=== PATIENT | male | born 1945 | race Caucasian/White ===

== ENCOUNTER → 2024-02-25 | Outpatient (CLI) | payer MEDICARE, BC, SELFPAY ==
[2024-02-25 12:16] LABS: Basophils % (Auto) 1 % (0-2.5); Eosinophils # (Auto) 0.2 Thou/mm3 (0.0-0.5); Eosinophils % (Auto) 3 % (0-10); Hematocrit 38.4 % (41.0-53.0); Hemoglobin 12.9 g/dL (13.5-16.0); Immature Granulocytes % (Auto) 0 % (0-0); Immature Granulocytes Auto 0.03 Thou/mm3 (0.00-0.00); Lymphocytes # (Auto) 2.1 Thou/mm3 (1.0-4.8); Lymphocytes % (Auto) 30 % (10-50); Mean Corpuscular HGB Conc 33.6 g/dl (31.0-37.0); Mean Corpuscular Hemoglobin 29.9 pg (25.0-35.0); Mean Corpuscular Volume 89 fL (80-100); Monocytes # (Auto) 0.8 Thou/mm3 (0.0-0.8); Monocytes % (Auto) 11 % (0-12); Neutrophils # (Auto) 3.9 Thou/mm3 (1.8-7.7); Neutrophils % (Auto) 55 % (37-80); Nucleated Red Blood Cell % 0 /100 WBC (0); Platelet Count 214 Thou/mm3 (140-440); RDW Standard Deviation 42.5 fL (35.1-43.9); Red Blood Count 4.32 Miln/mm3 (4.50-5.90); White Blood Count 7.1 Thou/mm3 (3.8-10.6)
[2024-02-25 12:25] LABS: Prostate Specific Antigen 0.27 ng/mL (0-4.00)
[2024-02-25 12:26] LABS: Alanine Aminotransferase 12 U/L (10-49); Albumin, Serum 4.2 gm/dL (3.4-4.8); Albumin/Globulin Ratio 1.8 (1.2-2.2); Alkaline Phosphatase 53 U/L (46-116); Anion Gap 3 (7-16); Aspartate Amino Transferase 18 U/L (0-34); BUN/Creatinine Ratio 16 Ratio (12-20); Bilirubin,Total 0.5 mg/dL (0.3-1.2); Blood Urea Nitrogen 16 mg/dL (9-23); Calcium 9.8 mg/dL (8.3-10.6); Calcium (Corrected) 9.8 mg/dL (8.5-10.1); Carbon Dioxide 26.2 mMol/L (20.0-31.0); Chloride 109 mMol/L (98-107); Globulin 2.3 gm/dL (2.3-3.5); Glucose 105 mg/dL (74-106); Osmolality,Calculated 276 (275-295); Sodium 138 mMol/L (136-145); Total Protein 6.5 gm/dL (5.7-8.2); eGFR > 60 See Note
== END | disposition home or self-care (01) ==
LOC: SCTO 10:54
PROVIDERS: PCP Family Medicine; Referring Provider Internal Medicine Hematology & Oncology; Visit Provider Internal Medicine Hematology & Oncology
DX: C61 Malignant neoplasm of prostate (principal); C79.51 Secondary malignant neoplasm of bone
CPT/HCPCS: 36415; 80053; 84153; 85025

== ENCOUNTER 2024-03-28 07:52 | Outpatient (RCR) | payer MEDICARE, BC, SELFPAY ==
--- NOTE | 2024-03-09 05:44 | CTCFLWUP_ITS ---
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 On Lupron. Xtandi discontinued due to arrhythmia in the first week of May 2021. Currently on Abiraterone 250 mg p.o. daily along with prednisone (11/04/2021??). REASON FOR TODAY?S VISIT: This is office follow-up visit. Mr. Gonzales is here at [facility]. He is clinically doing very well. Denies any new complaints. Denies any coug h, chest pain, abdominal pain or leg cramps. Ambulating well without any help. Has good appetite an d good energy levels. Denies any weight loss. Walks about a mile every day. Patient do not take calcium and vitamin D. HISTORY OF PRESENT ILLNESS: Adi Gonzales is a 78-year-old ENG speaking male with history of gout has the following oncology history. 01/20/2019: Patient had a CT scan of the abdomen and pelvis due to persistent pain of few weeks durat ion. CT scan showed extensive bulky para-aortic, paracaval adenopathy. Prominent left common as wel l as external iliac lymphadenopathy was also noted. Transverse prostate dimension was 4.6 cm in size . 01/21/2019: PSA 1840. 02/03/2019: Patient had prostate biopsy which showed [place] score 7 prostatic adenocarcinoma. 01/31/2019: Bone scan?no evidence of metastatic disease to the bone. 03/09/2019: MRI of the lumbar spine? 5 mm focal enhancement inferior L2 vertebral body, consider early osseous metastatic disease Prominent retroperitoneal adenopathy, please see the CT abdomen report January 21, 2019 02/08/2019: PSA 2734.20. 02/24/2019: Patient received Lupron 22.5 mg IM. He also started taking Casodex tablets. 03/14/2019: PSA 1414.5. 03/16/2019: Casodex discontinued. Patient was started on Xtandi. 03/20/2019: PET CT scan?IMPRESSION: Extensive para-aortic, paracaval, left common iliac, left externa l iliac weakly hypermetabolic lymphadenopathy Prostate transverse dimension 4.5 cm, irregular contour Negative for osseous metastatic disease 04/21/2019: CT-guided biopsy of right and left periaortic lymph nodes. Right para-aortic lymph node s howed metastatic prostatic adenocarcinoma. 05/17/2019: PSA 48.81. 08/05/2019: PSA 14.38. 09/09/2019: PET CT scan? 11/30/2019: PSA 6.74. 02/27/2020: PSA 5.16. Alkaline phosphatase 87. 06/05/2020: PSA 2.63. 06/11/2020: CT scan of the chest abdomen and pelvis with IV contrast? 08/22/2020: PSA 1.65. 02/25/2021: PSA 0.80. 05/24/2021: PSA 0.45. May 2021: Xtandi discontinued due to arrhythmias. 09/05/2021: Patient had Lupron 22.5 mg IM. 08/23/2021: PSA 0.64. 11/04/2021: Patient is started on Zytiga to 50 mg p.o. daily along with prednisone 5 mg p.o. daily. 12/26/2021: PSA 0.85. 01/28/2022: Bone scan?negative for bone mets 02/20/2022: PSA 0.60. 02/24/2022: CT scan of the chest abdomen and pelvis with IV contrast 12/03/2022: PSA 0.45 03/03/2023: PSA 0.51. 06/02/2023: PSA 0.46. 08/28/2023: PSA 0.41. PAST MEDICAL HISTORY: prostate?ca Gout PAST SURGICAL HISTORY: hernia MEDICATIONS: 1. abiraterone - 250 mg 1 tab Daily 2. aspirin - 81 mg 1 tab Daily 3. benazepril - 10 mg Daily 4. Colace - 250 mg Twice a Day 5. fentanyl - 25 mcg/hr 1 Patch q3 days 6. Lipitor - 10 mg 1 tab Daily 7. prednisone - 5 mg 1 tab Daily?Palabra Meds? Medications Last Reconciled by Cassandra Cotto MA on 10/15/2023 ALLERGIES: No Known Allergies REVIEW OF SYSTEMS:?Clone ROS? Neurological: No headache, seizures or blurring of vision. Gastrointestinal: No nausea, vomiting, diarrhea or constipation. Cardiovascular: No palpitations or angina pains. Respiratory: No cough, chest pain or shortness of breath. PHYSICAL EXAMINATION:?ClonePE? VITAL SIGNS: Alert oriented x 4 neck is supple. No adenopathy palpable in the neck, axilla or in the inguinal region. Chest clear to auscultation. No wheezes or rales audible. CVS rhythm regular. No murmurs or gallops. Abdomen is soft. No hepatosplenomegaly palpable. Extremities no clubbing or cyanosis. ASSESSMENT: 1. Castration resistant metastatic prostate ca, currently patient is on Lupron. PSA was increasing when patient was on Lupron and was added amputated on an prednisone in November 2021 and since then patient has been doing well the patient is clinically doing well without any complaints. Patient's PSA has been less than 1 Mr. Gonzales is currently on Abiraterone 250 mg p.o. daily along with prednisone 5 mg p.o. daily since 11/04/2021. And Lupron injections were continued CT-guided biopsy of the periaortic lymph node showed metastatic adenocarcinoma consistent with prosta te primary. Patient's bone scan is negative except for small activity in manubrium which she has been present bef ore. 2. History of gouy- patient to follow-up with PCP t PLAN: Continue Lupron and Zytiga 250 mg p.o. daily along with prednisone 5 mg p.o. daily Continue Lupron Get bone density. Will start on Reclast if found to be osteoporotic. Counseled to take calcium and vitamin D every day RTC in [address] Elaine Electronically Signed by: {Object.Sanct_ID*[email or web address]@M}, {Object.Sanct_ID*PnP.Suffix@U} D: {Object.Sanct_Date} T: {Object.Sanct_Time} CC: PCP: Carmine Santana Referring: Van Wolfe This document was completed utilizing speech recognition software. Grammatical errors, random word in sertions, pronoun errors, and incomplete sentences are an occasional consequence of this system due t o software limitations, ambient noise, and hardware issues. Any formal questions or concerns about th e content, text or information contained within the body of this dictation should be directly address ed to the provider for clarification.
== END 2024-04-05 23:59 | disposition home or self-care (01) ==
LOC: SCTC 07:52
PROVIDERS: PCP Family Medicine; Referring Provider Family Medicine; Visit Provider Radiology Therapeutic Radiology
DX: Z51.11 Encounter for antineoplastic chemotherapy (principal); C61 Malignant neoplasm of prostate; C77.2 Secondary and unspecified malignant neoplasm of intra-abdominal lymph nodes; G89.3 Neoplasm related pain (acute) (chronic)
CPT/HCPCS: 96402; 99212; 99213; J9217; G0463

== ENCOUNTER → 2024-04-28 | Outpatient (CLI) | payer MEDICARE, BC, SELFPAY ==
--- NOTE | 2024-04-28 13:00 | XR_ITS ---
Examination: Bone densitometry Date and time of exam:April 28, 2024 1301 hours INDICATIONS: 79-year-old male with diagnosis age related osteoporosis, prednisone administration 4 months Technique: Lumbar spine and hip total bone mineralization values of an calculated. Peak reference and age match control results have been displayed. Findings: Lumbar spine total bone mineralization is1.160 gm/cm2. This is 0.6 standard deviations above peak reference. This is 1.8 standard deviations above age-matched controls. Hip total bone mineralization is 0.864 gm/cm2 This is 1.1 standard deviations below peak reference. This is 0.0 standard deviations at age-matched controls Impression: There is normal mineralization based on lumbar spine measurements. There is osteopenia based on hip measurements
== END | disposition home or self-care (01) ==
PROVIDERS: PCP Family Medicine; Referring Provider Internal Medicine Hematology & Oncology; Visit Provider Internal Medicine Hematology & Oncology
DX: M85.88 Other specified disorders of bone density and structure, other site (principal); C61 Malignant neoplasm of prostate; C79.51 Secondary malignant neoplasm of bone
CPT/HCPCS: 77080

== ENCOUNTER → 2024-05-30 | Outpatient (CLI) | payer MEDICARE, BC, SELFPAY ==
[2024-05-30 12:35] LABS: Prostate Specific Antigen 0.26 ng/mL (0-4.00)
== END | disposition home or self-care (01) ==
LOC: SCTO 10:46
PROVIDERS: PCP Family Medicine; Referring Provider Internal Medicine Hematology & Oncology; Visit Provider Internal Medicine Hematology & Oncology
DX: C61 Malignant neoplasm of prostate (principal); C79.51 Secondary malignant neoplasm of bone
CPT/HCPCS: 36415; 84153

== ENCOUNTER 2024-06-28 07:48 | Outpatient (RCR) | payer MEDICARE, BC, SELFPAY | END 2024-07-04 23:59 | disposition home or self-care (01) | LOC: SCTC 07:48 | PROVIDERS: PCP Family Medicine; Referring Provider Family Medicine; Visit Provider Radiology Therapeutic Radiology | DX: Z51.11 Encounter for antineoplastic chemotherapy (principal); C61 Malignant neoplasm of prostate; Z79.818 Long term (current) use of other agents affecting estrogen receptors and estrogen levels | CPT/HCPCS: 96402; 99213; J9217; G0463 ==

== ENCOUNTER 2024-07-12 10:44 | Outpatient (RCR) | payer MEDICARE, BC, SELFPAY ==
--- NOTE | 2024-07-12 14:07 | CTCFLWUP_ITS ---
Patient: ADI GONZALES : 1945 Page 4 of 6 FOLLOW UP NOTE DATE OF SERVICE: 07/12/2024 NAME: ADI GONZALES ACCOUNT: [id number] : 1945 AGE: 79 INTERVAL HISTORY: Patient doing well. Taking his meds as prescribed .. ONCOLOGY HISTORY: DIAGNOSIS: castration resistant metastatic prostate cancer macie biopsy proven in lymph nodes (02/03/2019). On Lupron. Xtandi discontinued due to arrhythmia in the first week of May 2021. Currently on Abiraterone 250 mg p.o. daily along with prednisone (11/04/2021??). REASON FOR TODAY?S VISIT: This is office follow-up visit. Mr. Gonzales is here at [facility]. He is clinically doing very well. Denies any new complaints. Denies any cough, chest pain, abdominal pain or leg cramps. Ambulating well without any help. Has good appetite and good energy levels. Denies any weight loss. Walks about a mile every day. Patient do not take calcium and vitamin D. 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 01/20/2019: Patient had a CT scan of the abdomen and pelvis due to persistent pain of few weeks duration. CT scan showed extensive bulky para-aortic, paracaval adenopathy. Prominent left common as well as external iliac lymphadenopathy was also noted. Transverse prostate dimension was 4.6 cm in size. 01/21/2019: PSA 1840. 02/03/2019: Patient had prostate biopsy which showed [place] score 7 prostatic adenocarcinoma. 01/31/2019: Bone scan?no evidence of metastatic disease to the bone. 03/09/2019: MRI of the lumbar spine? 5 mm focal enhancement inferior L2 vertebral body, consider early osseous metastatic disease Prominent retroperitoneal adenopathy, please see the CT abdomen report January 21, 2019 02/08/2019: PSA 2734.20. 02/24/2019: Patient received Lupron 22.5 mg IM. He also started taking Casodex tablets. 03/14/2019: PSA 1414.5. 03/16/2019: Casodex discontinued. Patient was started on Xtandi. 03/20/2019: PET CT scan?IMPRESSION: Extensive para-aortic, paracaval, left common iliac, left external iliac weakly hypermetabolic lymphadenopathy Prostate transverse dimension 4.5 cm, irregular contour Negative for osseous metastatic disease 04/21/2019: CT-guided biopsy of right and left periaortic lymph nodes. Right para-aortic lymph node showed metastatic prostatic adenocarcinoma. 05/17/2019: PSA 48.81. 08/05/2019: PSA 14.38. 09/09/2019: PET CT scan? 11/30/2019: PSA 6.74. 02/27/2020: PSA 5.16. Alkaline phosphatase 87. 06/05/2020: PSA 2.63. 06/11/2020: CT scan of the chest abdomen and pelvis with IV contrast? 08/22/2020: PSA 1.65. 02/25/2021: PSA 0.80. 05/24/2021: PSA 0.45. May 2021: Xtandi discontinued due to arrhythmias. 09/05/2021: Patient had Lupron 22.5 mg IM. 08/23/2021: PSA 0.64. 11/04/2021: Patient is started on Zytiga to 50 mg p.o. daily along with prednisone 5 mg p.o. daily. 12/26/2021: PSA 0.85. 01/28/2022: Bone scan?negative for bone mets 02/20/2022: PSA 0.60. 02/24/2022: CT scan of the chest abdomen and pelvis with IV contrast 12/03/2022: PSA 0.45 03/03/2023: PSA 0.51. 06/02/2023: PSA 0.46. 08/28/2023: PSA 0.41. OTHER MEDICAL HISTORY/CONDITIONS: FAMILY HISTORY: SOCIAL HISTORY: MEDICATIONS: 1. abiraterone - 250 mg 1 tab Daily 2. aspirin - 81 mg 1 tab Daily 3. benazepril - 10 mg Daily 4. Brilinta - 90 mg 1 tab Twice a Day 5. Colace - 250 mg Twice a Day 6. fentanyl - 25 mcg/hr 1 Patch q3 days 7. Lipitor - 10 mg 1 tab Daily 8. pantoprazole - 40 mg 1 Daily 9. prednisone - 5 mg 1 tab Daily 10. Vitamin C - 1,000 mg 1 tab Daily Medications Last Reconciled by Jayna Cervantes MD on 07/12/2024 ALLERGIES: No Known Allergies REVIEW OF SYSTEMS: A complete 14-point review of systems was performed and is negative except as noted in interval history. PHYSICAL EXAMINATION: VITAL SIGNS: Temperature?98.4, B/P?119/72, Oxygen?Saturation?97% Weight?187?lbs (Change?since?06/28/24:?-3?lbs) PAIN: 0 - No pain ECOG Performance Status: 0 - Asymptomatic and fully active Alert oriented x 4 neck is supple. No adenopathy palpable in the neck, axilla or in the inguinal region. Breathes at room air No swelling anywhere Moves all extremities well in range No rash LABORATORY DATA: I have personally reviewed and interpreted each of the patient?s relevant lab tests, abnormal findings are below: Date 11/30/23 02/25/24 ??WHITE?BLOOD?COUNT?(Thou/mm3) 7.6 7.1 ??RED?BLOOD?COUNT?(Miln/mm3) 4.58 4.32?L ??HEMOGLOBIN?(gm/dl) 13.8 12.9?L ??HEMATOCRIT?(%) 40.9?L 38.4?L ??PLATELET?COUNT?(Thou/mm3) 244 214 ??NEUTROPHILS?%,?AUTO?(%) 68 55 ??LYMPH?%,?AUTO?(%) 24 30 ??NEUTROPHILS,?AUTO?(Thou/mm3) 5.1 3.9 ??GLUCOSE,RANDOM?(mg/dL) 111?H 105 ??BLOOD?UREA?NITROGEN?(mg/dL) 15 16 ??CREATININE?(mg/dL) 0.90 1.00 ??SODIUM?(mmol/L) 138 138 ??POTASSIUM?(mmol/L) 4.8 4.0 ??CHLORIDE?(mmol/L) 108?H 109?H ??CrCl?(CandG)?(ml/min) 83.24 71.82 ??AST/SGOT?(Unit/L) 17 18 ??ALT/SGPT?(Unit/L) 8?L 12 ??ALKALINE?PHOSPHATASE?(Unit/L) 60 53 ??BILIRUBIN,?TOTAL?(mg/dL) 0.5 0.5 ??PROTEIN?TOTAL?(gm/dl) 6.7 6.5 ??ALBUMIN,?SERUM?(gm/dl) 4.2 4.2 ??GLOBULIN?(gm/dl) 2.5 2.3 ??ALBUMIN/GLOBULIN?RATIO 1.7 1.8 ??CALCIUM,?SERUM?(mg/dL) 10.4 9.8 ??CALCIUM?SERUM?(CORRECTED)?(mg/dL) 10.4?H 9.8 ASSESSMENT/PLAN: 1. Castration resistant metastatic prostate ca, currently patient is on Lupron. PSA was increasing when patient was on Lupron and was added amputated on an prednisone in November 2021 and since then patient has been doing well the patient is clinically doing well without any complaints. Patient's PSA has been less than 1 Mr. Gonzales is currently on Abiraterone 250 mg p.o. daily along with prednisone 5 mg p.o. daily since 11/04/2021. And Lupron injections were continued CT-guided biopsy of the periaortic lymph node showed metastatic adenocarcinoma consistent with prostate primary. Patient's bone scan is negative except for small activity in manubrium which she has been present before. 2. History of gouy- patient to follow-up with PCP t Continue Lupron and Zytiga 250 mg p.o. daily along with prednisone 5 mg p.o. daily Continue Lupron Get bone density. Will start on Reclast if found to be osteoporotic. Counseled to take calcium and vitamin D every day RTC in 4 months. Will get psma based scan and if negative will give drug holiday Signed by Dr Elaine ORDERS: Order # Description [id number] Comprehensive Metabolic Panel - 12 + CBC with Auto Diff + PSA [id number] Follow Up 6 Month [id number] PET/CT of Skull to mid-thigh for Restaging [id number] Comprehensive Metabolic Panel - 12 + CBC with Auto Diff + PSA RETURN TO CLINIC: 4 months after scan on dec 2024 BILLING AND COMPLIANCE: I reviewed external records from providers outside my specialty as summarized above. I spent a total of 50 minutes on this patient?s care on the day of their visit excluding time spent related to any billed procedures. This time includes time spent with the patient as well as time spent documenting in the medical record, reviewing patients records and tests, obtaining history, placing orders, communicating with other healthcare professionals, counseling the patient, family or caregiver, and/or care coordination for the diagnoses above. Electronically Signed by: Alvarado Elaine MD T: 2:04 PM CC: PCP: Ronal Wolfe Referring: Ronal Wolfe This document was completed utilizing speech recognition software. Grammatical errors, random word insertions, pronoun errors, and incomplete sentences are an occasional consequence of this system due to software limitations, ambient noise, and hardware issues. Any formal questions or concerns about the content, text or information contained within the body of this dictation should be directly addressed to the provider for clarification.
== END 2024-08-03 23:59 | disposition home or self-care (01) ==
LOC: SCTC 10:44
PROVIDERS: PCP Family Medicine; Referring Provider Family Medicine; Visit Provider Internal Medicine Hematology & Oncology
DX: C61 Malignant neoplasm of prostate (principal); Z19.2 Hormone resistant malignancy status; C79.89 Secondary malignant neoplasm of other specified sites; Z79.818 Long term (current) use of other agents affecting estrogen receptors and estrogen levels
CPT/HCPCS: Q3014

== ENCOUNTER → 2024-08-30 | Outpatient (CLI) | payer MEDICARE, BC, SELFPAY ==
[2024-08-30 11:49] LABS: Basophils % (Auto) 0 % (0-2.5); Eosinophils # (Auto) 0.1 Thou/mm3 (0.0-0.5); Eosinophils % (Auto) 1 % (0-10); Hematocrit 39.7 % (41.0-53.0); Hemoglobin 13.2 g/dL (13.5-16.0); Immature Granulocytes % (Auto) 1 % (0-0); Immature Granulocytes Auto 0.05 Thou/mm3 (0.00-0.00); Lymphocytes # (Auto) 1.3 Thou/mm3 (1.0-4.8); Lymphocytes % (Auto) 18 % (10-50); Mean Corpuscular HGB Conc 33.2 g/dl (31.0-37.0); Mean Corpuscular Hemoglobin 29.9 pg (25.0-35.0); Mean Corpuscular Volume 90 fL (80-100); Monocytes # (Auto) 0.4 Thou/mm3 (0.0-0.8); Monocytes % (Auto) 6 % (0-12); Neutrophils # (Auto) 5.2 Thou/mm3 (1.8-7.7); Neutrophils % (Auto) 74 % (37-80); Nucleated Red Blood Cell % 0 /100 WBC (0); Platelet Count 219 Thou/mm3 (140-440); RDW Standard Deviation 44.2 fL (35.1-43.9); Red Blood Count 4.42 Miln/mm3 (4.50-5.90); White Blood Count 7.1 Thou/mm3 (3.8-10.6)
[2024-08-30 12:04] LABS: Prostate Specific Antigen 0.32 ng/mL (0-4.00)
[2024-08-30 12:13] LABS: Alanine Aminotransferase 10 U/L (10-49); Albumin, Serum 4.2 gm/dL (3.4-4.8); Albumin/Globulin Ratio 1.8 (1.2-2.2); Alkaline Phosphatase 56 U/L (46-116); Anion Gap 5 (7-16); Aspartate Amino Transferase 22 U/L (0-34); BUN/Creatinine Ratio 13 Ratio (12-20); Bilirubin,Total 0.3 mg/dL (0.3-1.2); Blood Urea Nitrogen 13 mg/dL (9-23); Calcium 9.3 mg/dL (8.3-10.6); Calcium (Corrected) 9.3 mg/dL (8.5-10.1); Carbon Dioxide 25.8 mMol/L (20.0-31.0); Chloride 109 mMol/L (98-107); Globulin 2.3 gm/dL (2.3-3.5); Glucose 118 mg/dL (74-106); Osmolality,Calculated 280 (275-295); Potassium 4.4 mMol/L (3.4-5.1); Sodium 140 mMol/L (136-145); Total Protein 6.5 gm/dL (5.7-8.2); eGFR > 60 See Note
== END | disposition home or self-care (01) ==
LOC: SCTO 10:33
PROVIDERS: PCP Nurse Practitioner Family; Referring Provider Internal Medicine Hematology & Oncology; Visit Provider Internal Medicine Hematology & Oncology
DX: C61 Malignant neoplasm of prostate (principal); C79.51 Secondary malignant neoplasm of bone
CPT/HCPCS: 36415; 80053; 84153; 85025

== ENCOUNTER 2024-09-28 07:47 | Outpatient (RCR) | payer MEDICARE, BC, SELFPAY | END 2024-10-03 23:59 | disposition home or self-care (01) | LOC: SCTC 07:47 | PROVIDERS: PCP Nurse Practitioner Family; Referring Provider Nurse Practitioner Family; Visit Provider Radiology Therapeutic Radiology | DX: Z51.11 Encounter for antineoplastic chemotherapy (principal); C61 Malignant neoplasm of prostate | CPT/HCPCS: 96402; 99213; J9217; G0463 ==

== ENCOUNTER → 2024-11-28 | Outpatient (CLI) | payer MEDICARE, BC, SELFPAY ==
[2024-11-28 07:41] LABS: Misc Send Out* See Sep Rpt
[2024-11-28 08:50] LABS: Basophils # (Auto) 0.0 Thou/mm3 (0.0-0.2); Basophils % (Auto) 1 % (0-2.5); Eosinophils # (Auto) 0.1 Thou/mm3 (0.0-0.5); Eosinophils % (Auto) 2 % (0-10); Hematocrit 41.3 % (41.0-53.0); Hemoglobin 13.9 g/dL (13.5-16.0); Immature Granulocytes Auto 0.07 Thou/mm3 (0.00-0.00); Immature Reticulocyte Fraction 6.8 % (2.3-13.4); Lymphocytes # (Auto) 1.6 Thou/mm3 (1.0-4.8); Lymphocytes % (Auto) 19 % (10-50); Mean Corpuscular HGB Conc 33.7 g/dl (31.0-37.0); Mean Corpuscular Hemoglobin 30.4 pg (25.0-35.0); Mean Corpuscular Volume 90 fL (80-100); Monocytes # (Auto) 0.7 Thou/mm3 (0.0-0.8); Monocytes % (Auto) 9 % (0-12); Neutrophils # (Auto) 5.8 Thou/mm3 (1.8-7.7); Neutrophils % (Auto) 69 % (37-80); Nucleated Red Blood Cell # 0.00 Thou/mm3 (0.00-0.00); Nucleated Red Blood Cell % 0 /100 WBC (0); Platelet Count 246 Thou/mm3 (140-440); RDW Standard Deviation 44.1 fL (35.1-43.9); Red Blood Count 4.57 Miln/mm3 (4.50-5.90); Reticulocyte % (Auto) 1.7 % (0.5-1.5); Reticulocyte Absolute Auto 77.2 Biln/L (25.0-75.0); Reticulocyte Hgb Content 36.8 pg (28.0-35.0); White Blood Count 8.4 Thou/mm3 (3.8-10.6)
[2024-11-28 09:04] LABS: Alanine Aminotransferase 11 U/L (10-49); Albumin, Serum 4.4 gm/dL (3.4-4.8); Albumin/Globulin Ratio 1.8 (1.2-2.2); Alkaline Phosphatase 54 U/L (46-116); Anion Gap 6 (7-16); Aspartate Amino Transferase 22 U/L (0-34); BUN/Creatinine Ratio 11 Ratio (12-20); Bilirubin,Total 0.5 mg/dL (0.3-1.2); Blood Urea Nitrogen 10 mg/dL (9-23); Calcium 10.3 mg/dL (8.3-10.6); Calcium (Corrected) 10.3 mg/dL (8.5-10.1); Carbon Dioxide 27.9 mMol/L (20.0-31.0); Cardiac Risk Estimate 2.0 RATIO (4.0-6.7); Chloride 104 mMol/L (98-107); Cholesterol 184 mg/dL (132-200); Creatinine (Component) 0.9 mg/dL (0.6-1.3); Globulin 2.4 gm/dL (2.3-3.5); Glucose 116 mg/dL (74-106); HDL Cholesterol 93 mg/dL (40-60); LDL Cholesterol,Calculated 72 mg/dL (0-130); Osmolality,Calculated 275 (275-295); Potassium 3.8 mMol/L (3.4-5.1); Sodium 138 mMol/L (136-145); Thyroid Stimulating Hormone 1.61 uIU/mL (0.55-4.78); Total Protein 6.8 gm/dL (5.7-8.2); Triglycerides 94 mg/dL (30-150); eGFR > 60 See Note
[2024-11-28 09:09] LABS: Ferritin 64 ng/mL (10.5-307.3); Prostate Specific Antigen 0.33 ng/mL (0-4.00); Total Iron Binding Capacity 307 mcg/dL (250-425)
[2024-11-28 09:25] LABS: Glucose Estimated Average 111 mg/dL (80-131); Hemoglobin A1C 5.5 % Hgb (4.8-6.0)
[2024-11-28 12:17] LABS: Creatinine MALB Rnd Ur 147 mg/dL (30-125); Microalbumin Creat Ratio 3 mg/gCrea (<30); Microalbumin, Random Urine 4 mg/L (0-300)
[2024-12-02 07:02] LABS: Homocysteine* 9.7 umol/L (< OR = 15.2); Methylmalonic Acid, GC/MS/MS* 237 nmol/L (85-423)
== END | disposition home or self-care (01) ==
LOC: SCTO 07:16
PROVIDERS: PCP Family Medicine; Referring Provider Nurse Practitioner Family; Visit Provider Internal Medicine Hematology & Oncology
DX: D64.9 Anemia, unspecified (principal); I10 Essential (primary) hypertension; C61 Malignant neoplasm of prostate; C79.51 Secondary malignant neoplasm of bone
CPT/HCPCS: 36415; 80053; 80061; 82043; 82570; 82728; 83036; 83090; 83550; 83921; 84153; 84443; 85025; 85046

== ENCOUNTER 2024-12-08 13:11 | Outpatient (RCR) | payer MEDICARE, BC, SELFPAY ==
--- NOTE | 2024-12-07 08:35 | CTCFLWUP_ITS ---
[facility] [address] [place], [place] [address] FOLLOW-UP NOTE Date: 12/07/2024 MR#: [id number] Name: CANDE GONZALES : 1945 Dx: C61 Malignant neoplasm of prostate 79-year-old gentleman with prostate CA with extensive abdominal mets now castration resistant. Biopsy from both the prostate 02/03/2019 and abdominal lymph node 04/21/2019 were positive for prostate CA. Currently on Lupron abiraterone along with prednisone under Dr. Elaine's direction. Normal mineralization based on lumbar spine measurements and osteopenia based on hip measurements on most recent bone densitometry of 04/28/2024. Taking calcium and vitamin D every day. PSA slowly rising from 0.27 1121 24 - 0.33 8 2525. PSMA PET has been ordered. Pain well-controlled with fentanyl 25. Has no specific concerns today. A#!. Castration resistant metastatic prostate CA currently on Lupron Zytiga prednisone. Dr. Elaine's direction. Also taking calcium and vitamin D daily. A#2. PSA while still quite low has been slowly rising 0.33 on 11/28/2024. Patient feels well. And pain controlled with fentanyl 25 every 3 days. A#3. PSMA PET scan has been ordered. I will see him again in 3 months time. For pain management. Electronically signed by: Michi Patel M.D. 12/07/2024 8:33 AM
== END 2025-01-03 23:59 | disposition home or self-care (01) ==
LOC: SCTC 13:11
PROVIDERS: PCP Family Medicine; Referring Provider Family Medicine; Visit Provider Radiology Therapeutic Radiology
DX: Z51.11 Encounter for antineoplastic chemotherapy (principal); C61 Malignant neoplasm of prostate; C77.2 Secondary and unspecified malignant neoplasm of intra-abdominal lymph nodes; Z19.2 Hormone resistant malignancy status; M85.88 Other specified disorders of bone density and structure, other site
CPT/HCPCS: 96402; 99212; J9217; G0463

== ENCOUNTER 2025-01-24 10:10 | Outpatient (RCR) | payer MEDICARE, BC, SELFPAY | END 2025-02-03 23:59 | disposition home or self-care (01) | LOC: SCTC 10:10 | PROVIDERS: PCP Family Medicine; Referring Provider Family Medicine; Visit Provider Internal Medicine Hematology & Oncology | DX: C61 Malignant neoplasm of prostate (principal); C77.2 Secondary and unspecified malignant neoplasm of intra-abdominal lymph nodes; Z19.2 Hormone resistant malignancy status; Z79.818 Long term (current) use of other agents affecting estrogen receptors and estrogen levels | CPT/HCPCS: 99212; G0463 ==

== ENCOUNTER → 2025-02-27 | Outpatient (CLI) | payer MEDICARE, BC, SELFPAY ==
[2025-02-27 08:36] LABS: Basophils # (Auto) 0.1 Thou/mm3 (0.0-0.2); Basophils % (Auto) 1 % (0-2.5); Eosinophils # (Auto) 0.3 Thou/mm3 (0.0-0.5); Eosinophils % (Auto) 3 % (0-10); Hematocrit 42.1 % (41.0-53.0); Hemoglobin 14.1 g/dL (13.5-16.0); Immature Granulocytes Auto 0.05 Thou/mm3 (0.00-0.00); Lymphocytes # (Auto) 1.8 Thou/mm3 (1.0-4.8); Lymphocytes % (Auto) 21 % (10-50); Mean Corpuscular HGB Conc 33.5 g/dl (31.0-37.0); Mean Corpuscular Hemoglobin 30.6 pg (25.0-35.0); Mean Corpuscular Volume 91 fL (80-100); Monocytes # (Auto) 0.9 Thou/mm3 (0.0-0.8); Monocytes % (Auto) 10 % (0-12); Neutrophils # (Auto) 5.4 Thou/mm3 (1.8-7.7); Neutrophils % (Auto) 65 % (37-80); Nucleated Red Blood Cell # 0.00 Thou/mm3 (0.00-0.00); Nucleated Red Blood Cell % 0 /100 WBC (0); Platelet Count 260 Thou/mm3 (140-440); RDW Standard Deviation 41.9 fL (35.1-43.9); Red Blood Count 4.61 Miln/mm3 (4.50-5.90); White Blood Count 8.4 Thou/mm3 (3.8-10.6)
[2025-02-27 09:00] LABS: Prostate Specific Antigen 0.29 ng/mL (0-4.00)
[2025-02-27 09:08] LABS: Alanine Aminotransferase 14 U/L (10-49); Albumin, Serum 4.5 gm/dL (3.4-4.8); Albumin/Globulin Ratio 1.9 (1.2-2.2); Alkaline Phosphatase 55 U/L (46-116); Anion Gap 7 (7-16); Aspartate Amino Transferase 23 U/L (0-34); BUN/Creatinine Ratio 14 Ratio (12-20); Bilirubin,Total 0.4 mg/dL (0.3-1.2); Blood Urea Nitrogen 17 mg/dL (9-23); Calcium 9.8 mg/dL (8.3-10.6); Calcium (Corrected) 9.8 mg/dL (8.5-10.1); Carbon Dioxide 28.4 mMol/L (20.0-31.0); Chloride 106 mMol/L (98-107); Creatinine (Component) 1.2 mg/dL (0.6-1.3); Globulin 2.4 gm/dL (2.3-3.5); Glucose 139 mg/dL (74-106); Osmolality,Calculated 284 (275-295); Potassium 4.0 mMol/L (3.4-5.1); Sodium 141 mMol/L (136-145); Total Protein 6.9 gm/dL (5.7-8.2); eGFR > 60 See Note
== END | disposition home or self-care (01) ==
LOC: SCTO 06:42
PROVIDERS: PCP Family Medicine; Referring Provider Internal Medicine Hematology & Oncology; Visit Provider Internal Medicine Hematology & Oncology
DX: C61 Malignant neoplasm of prostate (principal); C79.51 Secondary malignant neoplasm of bone
CPT/HCPCS: 36415; 80053; 84153; 85025

== ENCOUNTER 2025-03-09 12:57 | Outpatient (RCR) | payer MEDICARE, BC, SELFPAY ==
--- NOTE | 2025-03-08 08:50 | CTCFLWUP_ITS ---
[facility] [address] [place], [place] [address] Follow-up note. Date: 03/08/2025 MR#: [id number] Name: CANDE GONZALES : 1945 Account #: ?? Identification. Patient with stage IV prostate CA with bulky periaortic pericaval adenopathy. Diagnosed November 2021. Has done quite well with hormone manipulation currently on Zytiga and prednisone. Recent imaging studies showed good response with little or no residual residual cancer, PSA after slight rise is now 0.29 on 02/27/2025. Patient now seeing Dr. Elaine who has added Zometa to his regimen. Pain well-controlled with fentanyl 25. No major digestive issues or pain. [employer] website checked med renewed. I will see him in 3 months for pain management. Electronically signed by: Michi Patel MD, BERNABER 03/08/2025 8:48 AM
== END 2025-04-05 23:59 | disposition home or self-care (01) ==
LOC: SCTC 12:57
PROVIDERS: PCP Family Medicine; Referring Provider Family Medicine; Visit Provider Radiology Therapeutic Radiology
DX: Z51.11 Encounter for antineoplastic chemotherapy (principal); C61 Malignant neoplasm of prostate
CPT/HCPCS: 96402; 99213; J9217; G0463